=== PATIENT | male | born 1950 | race Caucasian/White ===

== ENCOUNTER 2019-09-18 13:05 | Observation (INO) ==
[2019-09-18 13:43] LABS: Basophils % 0.4 %; Eosinophils # 0.1 K/mcL (0.0-0.6); Eosinophils % 1.1 %; Hemoglobin 14.8 g/dL (12.9-16.9); Immature Granulocytes % 0.4 % (0-4); Lymphocytes # 2.7 K/mcL (0.6-4.6); Lymphocytes % 31.7 %; Mean Corpuscular HGB Conc 34.4 g/dL (31.6-35.5); Mean Corpuscular Hemoglobin 31.5 pg (28.0-33.3); Mean Corpuscular Volume 91.5 fL (83.0-100.0); Mean Platelet Volume 10.6 fL (9.4-12.4); Monocytes # 0.6 K/mcL (0.0-1.3); Monocytes % 7.1 %; Neutrophils # 5.1 K/mcL (1.6-8.9); Platelet Count 178 K/mcL (140-400); Red Cell Distribution Width 13.6 % (11.5-14.5); Segmented Neutrophils % 59.3 %; White Blood Count 8.5 K/mcL (4.3-11.1)
[2019-09-18 14:05] LABS: Calcium 9.6 mg/dL (8.6-10.3); Potassium 4.6 mEq/L (3.5-5.1)
[2019-09-18 14:12] LABS: Troponin I 0.05 ng/mL (< 0.04)
[2019-09-18] MEDS ORDERED: *HR* Dextrose 50 % in Water (Syg) 50 ML SYRINGE ONE (14:15)
[2019-09-18] MEDS: *HR* Dextrose 50 % in Water (Vial) 50 ML VIAL IVP ONE ×2 (14:16→14:23)
[2019-09-18] MEDS ORDERED: *HR* Dextrose 50 % in Water (Syg) 50 ML SYRINGE IVP ONE (14:30)
[2019-09-18] MEDS ORDERED: Aspirin 81 MG TAB.CHEW PO ONE (14:45)
[2019-09-18] MEDS ORDERED: Heparin 25,000 UNIT/250 ML D5W 25,000 UNIT/250 ML IV.SOLN IVC SCH (15:00)
[2019-09-18] MEDS ORDERED: *HR* Heparin 5,000 UNIT/ML VIAL IVP PRN ×2 (15:00)
[2019-09-18] MEDS ORDERED: *HR* Heparin 5,000 UNIT/ML VIAL IVP ONE (15:00)
[2019-09-18] MEDS ORDERED: Ondansetron ODT 4 MG TAB.RAPDIS SL PRN (16:01)
[2019-09-18] MEDS ORDERED: Ringers Solution, Lactated 1,000 ML IVC ONE (16:04)
[2019-09-18 16:34] LABS: Heparin anti-factor XA UFH < 0.04 IU/mL (0.30-0.70)
[2019-09-18 16:35] LABS: Hematocrit 43.1 % (37.5-50.1); Mean Corpuscular HGB Conc 34.8 g/dL (31.6-35.5); Mean Corpuscular Hemoglobin 31.6 pg (28.0-33.3); Mean Corpuscular Volume 90.9 fL (83.0-100.0); Mean Platelet Volume 10.9 fL (9.4-12.4); Platelet Count 175 K/mcL (140-400); Prothrombin Time 11.3 Seconds (9.4-12.1); Red Blood Count 4.74 M/mcL (4.19-5.50); Red Cell Distribution Width 13.4 % (11.5-14.5); White Blood Count 8.5 K/mcL (4.3-11.1)
[2019-09-18] MEDS ORDERED: Famotidine 20 MG TABLET PO PRN (16:58)
[2019-09-18] MEDS ORDERED: Gabapentin 300 MG CAPSULE PO PRN (16:58)
[2019-09-18] MEDS ORDERED: Insulin NPH/REG 70/30 100 UNIT/ML (x5UNIT) SQ SCH ×2 (17:00→17:15)
[2019-09-18] MEDS ORDERED: Dextrose Gel 15 GM/37.5 ML TUBE PO PRN ×2 (17:07)
[2019-09-18] MEDS ORDERED: *HR* Dextrose 50 % in Water (Syg) 50 ML SYRINGE IVP PRN (17:07)
[2019-09-18] MEDS ORDERED: D5% in Water 1,000 ML IVC PRN (17:07)
[2019-09-18] MEDS: CycloSPORINE (SandIMMUNE) 100 MG CAPSULE PO SCH (18:57)
[2019-09-18] MEDS ORDERED: Insulin DETEMIR 100 UNIT/ML X5UNITS SQ SCH ×2 (21:00)
[2019-09-18] MEDS ORDERED: Insulin LISPRO 300 UNITS/3 ML VIAL SQ SCH (21:00)
[2019-09-19 05:20] LABS: Basophils % 0.2 %; Eosinophils # 0.1 K/mcL (0.0-0.6); Eosinophils % 1.6 %; Hematocrit 43.2 % (37.5-50.1); Hemoglobin 14.4 g/dL (12.9-16.9); Immature Granulocytes % 0.4 % (0-4); Lymphocytes # 3.2 K/mcL (0.6-4.6); Lymphocytes % 39.2 %; Mean Corpuscular HGB Conc 33.3 g/dL (31.6-35.5); Mean Corpuscular Hemoglobin 31.6 pg (28.0-33.3); Mean Corpuscular Volume 94.7 fL (83.0-100.0); Mean Platelet Volume 10.7 fL (9.4-12.4); Monocytes # 0.7 K/mcL (0.0-1.3); Monocytes % 8.4 %; Neutrophils # 4.1 K/mcL (1.6-8.9); Platelet Count 141 K/mcL (140-400); Red Blood Count 4.56 M/mcL (4.19-5.50); Red Cell Distribution Width 13.6 % (11.5-14.5); Segmented Neutrophils % 50.2 %; White Blood Count 8.1 K/mcL (4.3-11.1)
[2019-09-19 05:41] LABS: Calcium 8.9 mg/dL (8.6-10.3); Potassium 3.9 mEq/L (3.5-5.1)
[2019-09-19] MEDS ORDERED: Insulin LISPRO 300 UNITS/3 ML VIAL SQ SCH (07:30)
[2019-09-19] MEDS ORDERED: Insulin NPH/REG 70/30 100 UNIT/ML (x5UNIT) SQ SCH ×4 (08:00→17:00)
[2019-09-19] MEDS: Cholecalciferol (D-3) 1,000 UNIT (25MCG) TABLET PO SCH (08:58)
[2019-09-19] MEDS: CycloSPORINE, Mod (Neoral) 25 MG CAPSULE PO SCH (08:58)
[2019-09-19] MEDS: CycloSPORINE (SandIMMUNE) 100 MG CAPSULE PO SCH ×2 (08:59→18:03)
[2019-09-19] MEDS: Metoprolol XL (24 HR) Succ 25 MG TAB.ER.24H PO SCH (08:59)
[2019-09-19] MEDS: predniSONE 5 MG TABLET PO SCH (08:59)
[2019-09-19] MEDS ORDERED: NON-FORMULARY MEDICATION 1 EACH EACH (Omega-3/Dha/Epa/Fish Oil [Fish Oil 1,000 Mg Softgel] PO SCH (09:00)
[2019-09-19] MEDS: Aspirin 81 MG TAB.CHEW PO SCH (09:00)
[2019-09-19] MEDS: Insulin NPH/REG 70/30 100 UNIT/ML (x5UNIT) SQ SCH (11:04)
[2019-09-19] MEDS: *HR* Heparin 5,000 UNIT/ML VIAL SQ SCH (18:03)
[2019-09-20 06:07] LABS: Basophils % 0.4 %; Eosinophils # 0.1 K/mcL (0.0-0.6); Eosinophils % 1.3 %; Hemoglobin 14.9 g/dL (12.9-16.9); Immature Granulocytes % 0.3 % (0-4); Lymphocytes # 2.7 K/mcL (0.6-4.6); Lymphocytes % 38.4 %; Mean Corpuscular HGB Conc 33.9 g/dL (31.6-35.5); Mean Corpuscular Hemoglobin 30.9 pg (28.0-33.3); Mean Corpuscular Volume 91.3 fL (83.0-100.0); Mean Platelet Volume 10.9 fL (9.4-12.4); Monocytes # 0.6 K/mcL (0.0-1.3); Monocytes % 9.2 %; Neutrophils # 3.5 K/mcL (1.6-8.9); Platelet Count 157 K/mcL (140-400); Red Blood Count 4.82 M/mcL (4.19-5.50); Red Cell Distribution Width 13.6 % (11.5-14.5); Segmented Neutrophils % 50.4 %; White Blood Count 6.9 K/mcL (4.3-11.1)
[2019-09-20] MEDS: *HR* Heparin 5,000 UNIT/ML VIAL SQ SCH (06:35)
[2019-09-20 07:07] LABS: Calcium 9.3 mg/dL (8.6-10.3); Potassium 4.2 mEq/L (3.5-5.1)
[2019-09-20] MEDS: Cholecalciferol (D-3) 1,000 UNIT (25MCG) TABLET PO SCH (07:33)
[2019-09-20] MEDS: predniSONE 5 MG TABLET PO SCH (07:33)
[2019-09-20] MEDS: Aspirin 81 MG TAB.CHEW PO SCH (07:33)
[2019-09-20] MEDS: Metoprolol XL (24 HR) Succ 25 MG TAB.ER.24H PO SCH (07:33)
[2019-09-20] MEDS: CycloSPORINE, Mod (Neoral) 25 MG CAPSULE PO SCH (07:33)
[2019-09-20] MEDS: CycloSPORINE (SandIMMUNE) 100 MG CAPSULE PO SCH (07:34)
[2019-09-20] MEDS ORDERED: Insulin NPH/REG 70/30 100 UNIT/ML (x5UNIT) SQ SCH ×3 (08:00→17:15)
[2019-09-20] MEDS ORDERED: CeFAZolin Syr 2,000MG/20 ML 2,000 MG/20 ML SYRINGE IVPB ONE (08:01)
[2019-09-20] MEDS ORDERED: Heparin 1,000 UNITS/500 mL 500 ML ONE ×2 (12:01→12:34)
[2019-09-20] MEDS ORDERED: Lidocaine 1% 20 ML MDV ONE (12:01)
[2019-09-20] MEDS ORDERED: *HR* Vasopressin 20 UNIT/ML VIAL ONE (12:06)
[2019-09-20] MEDS ORDERED: Ondansetron 4 MG/2 ML VIAL IVP PRN ×2 (12:07→15:53)
[2019-09-20] MEDS ORDERED: *HR* HYDROmorphone (PF) 1 MG/ML SYRINGE IVP PRN ×2 (12:07→15:53)
[2019-09-20] MEDS ORDERED: *HR* Labetalol 20 MG/4 ML SYRINGE IVP PRN ×2 (12:07→15:53)
[2019-09-20] MEDS ORDERED: Lidocaine -MPF 2% 2 ML VIAL ONE (12:08)
[2019-09-20] MEDS ORDERED: *HR* Propofol 200 MG/20 ML VIAL IVP ONE (12:08)
[2019-09-20] MEDS ORDERED: *HR* FentaNYL (PF) 100 MCG/2 ML VIAL ONE (12:09)
[2019-09-20] MEDS ORDERED: Dexamethasone 4 MG/ML VIAL ONE (12:09)
[2019-09-20 12:27] LABS: Calcium 9.6 mg/dL (8.6-10.3); Potassium 5.4 mEq/L (3.5-5.1)
[2019-09-20] MEDS: Insulin NPH/REG 70/30 100 UNIT/ML (x5UNIT) SQ SCH (12:31)
[2019-09-20] MEDS ORDERED: Ondansetron 4 MG/2 ML VIAL ONE (12:59)
[2019-09-20] MEDS ORDERED: EPHEDrine 50 MG/ML VIAL ONE (13:23)
[2019-09-20] MEDS ORDERED: Ondansetron ODT 4 MG TAB.RAPDIS SL PRN (15:53)
[2019-09-20] MEDS ORDERED: Naloxone 0.4 MG/ML INJ IVP PRN (15:53)
[2019-09-20] MEDS ORDERED: Dextrose Gel 15 GM/37.5 ML TUBE PO PRN ×2 (15:53)
[2019-09-20] MEDS ORDERED: Famotidine 20 MG TABLET PO PRN (15:53)
[2019-09-20] MEDS ORDERED: *HR* Dextrose 50 % in Water (Syg) 50 ML SYRINGE IVP PRN (15:53)
[2019-09-20] MEDS ORDERED: D5% in Water 1,000 ML IVC PRN (15:53)
[2019-09-20] MEDS ORDERED: Acetaminophen 325 MG TABLET PO PRN (15:53)
[2019-09-20] MEDS ORDERED: Gabapentin 300 MG CAPSULE PO PRN (15:53)
[2019-09-20 17:53] VITALS: BP 155/75
[2019-09-20] MEDS ORDERED: CycloSPORINE (SandIMMUNE) 100 MG CAPSULE PO SCH (18:00)
[2019-09-20] MEDS ORDERED: *HR* Heparin 5,000 UNIT/ML VIAL SQ SCH (18:00)
[2019-09-21] MEDS ORDERED: Insulin NPH/REG 70/30 100 UNIT/ML (x5UNIT) SQ SCH ×2 (08:00→12:00)
[2019-09-21] MEDS ORDERED: CycloSPORINE (SandIMMUNE) 100 MG CAPSULE PO SCH (09:00)
[2019-09-21] MEDS ORDERED: Aspirin 81 MG TAB.CHEW PO SCH (09:00)
[2019-09-21] MEDS ORDERED: CycloSPORINE, Mod (Neoral) 25 MG CAPSULE PO SCH (09:00)
[2019-09-21] MEDS ORDERED: predniSONE 5 MG TABLET PO SCH (09:00)
[2019-09-21] MEDS ORDERED: Metoprolol XL (24 HR) Succ 25 MG TAB.ER.24H PO SCH (09:00)
[2019-09-21] MEDS ORDERED: Cholecalciferol (D-3) 1,000 UNIT (25MCG) TABLET PO SCH (09:00)
== END 2019-09-20 19:05 | disposition home or self-care (01) ==
LOC: EMEROOARM 13:05 → 2ANU 13:05
PROVIDERS: ADMIT Pharmacist; ATTEND Internal Medicine

== ENCOUNTER 2020-07-19 09:33 | Inpatient (IN) ==
[2020-07-19 10:23] LABS: Basophils % 0.1 %; Eosinophils # 0.1 K/mcL (0.0-0.6); Eosinophils % 1.5 %; Hemoglobin 14.5 g/dL (12.9-16.9); Immature Granulocytes % 0.1 % (0-4); Lymphocytes # 1.9 K/mcL (0.6-4.6); Lymphocytes % 25.2 %; Mean Corpuscular Hemoglobin 32.2 pg (28.0-33.3); Mean Corpuscular Volume 97.8 fL (83.0-100.0); Mean Platelet Volume 10.9 fL (9.4-12.4); Monocytes # 0.7 K/mcL (0.0-1.3); Neutrophils # 4.7 K/mcL (1.6-8.9); Platelet Count 181 K/mcL (140-400); Segmented Neutrophils % 64.1 %; White Blood Count 7.3 K/mcL (4.3-11.1)
[2020-07-19 10:29] LABS: Prothrombin Time 11.6 Seconds (9.4-12.1)
[2020-07-19 10:32] LABS: Activated Partial Thrombo Time 27.9 Seconds (26.0-36.0)
[2020-07-19 10:48] LABS: Calcium 9.5 mg/dL (8.6-10.3); Potassium 5.5 mEq/L (3.5-5.1); Troponin I 0.06 ng/mL (< 0.04)
[2020-07-19] MEDS ORDERED: 0.9 % Sodium Chloride 1,000 ML IVC STA (11:02)
[2020-07-19] MEDS ORDERED: Insulin Human Regular 10 UNIT in 0.9 % Sodium Chloride 10 ML IV ONE (11:02)
[2020-07-19] MEDS ORDERED: Calcium Gluconate 1gm/50mL 1 GM/50 ML BAG IVPB ONE ×2 (11:21→12:05)
[2020-07-19] MEDS: Calcium Gluconate 1gm/50mL 1 GM/50 ML BAG IVPB PRN ×2 (11:29→12:14)
[2020-07-19] MEDS ORDERED: *HR* Dextrose 50 % in Water (Vial) 50 ML VIAL IVP PRN (13:09)
[2020-07-19] MEDS ORDERED: Dextrose Gel 15 GM/37.5 ML TUBE PO PRN ×2 (13:09)
[2020-07-19] MEDS ORDERED: D5% in Water 1,000 ML IVC PRN (13:09)
[2020-07-19] MEDS ORDERED: Nitroglycerin 0.4 MG TAB.SUBL SL PRN (13:14)
[2020-07-19] MEDS ORDERED: Naloxone 0.4 MG/ML INJ IVP PRN (13:42)
[2020-07-19] MEDS ORDERED: Isosorbide MONOnitrate (24 HR) 30 MG TAB.ER.24H PO ONE (13:48)
[2020-07-19] MEDS ORDERED: *HR* Heparin 5,000 UNIT/ML VIAL IVP PRN ×2 (13:57)
[2020-07-19] MEDS ORDERED: *HR* Heparin 5,000 UNIT/ML VIAL IVP ONE (13:57)
[2020-07-19] MEDS ORDERED: Aspirin 81 MG TAB.CHEW PO SCH (14:00)
[2020-07-19] MEDS ORDERED: Aspirin 81 MG TAB.CHEW PO ONE (14:14)
[2020-07-19] MEDS: Nitroglycerin 1 INCH/GM PACKET TP SCH (15:00)
[2020-07-19] MEDS: Heparin 25,000UNIT/250ML 1/2NS 25,000 UNIT/250 ML IV.SOLN IVC SCH (15:07)
[2020-07-19 15:15] LABS: Hematocrit 40.4 % (37.5-50.1); Hemoglobin 13.7 g/dL (12.9-16.9); Mean Corpuscular HGB Conc 33.9 g/dL (31.6-35.5); Mean Corpuscular Hemoglobin 32.5 pg (28.0-33.3); Mean Corpuscular Volume 95.7 fL (83.0-100.0); Mean Platelet Volume 10.5 fL (9.4-12.4); Platelet Count 152 K/mcL (140-400); Red Blood Count 4.22 M/mcL (4.19-5.50); White Blood Count 5.9 K/mcL (4.3-11.1)
[2020-07-19 15:21] LABS: Heparin anti-factor XA UFH < 0.04 IU/mL (0.30-0.70)
[2020-07-19 15:22] LABS: Prothrombin Time 12.1 Seconds (9.4-12.1)
[2020-07-19 15:23] LABS: Activated Partial Thrombo Time 26.4 Seconds (26.0-36.0)
[2020-07-19] MEDS: Insulin LISPRO 300 UNITS/3 ML VIAL SUBQ SCH ×2 (16:49→20:44)
[2020-07-19] MEDS ORDERED: Perflutren Lipid Microsphere 1.3 ML in 0.9 % Sodium Chloride 8.7 ML IVP PRN (17:14)
[2020-07-20] MEDS ORDERED: Acetaminophen 325 MG TABLET PO PRN (00:54)
[2020-07-20 05:23] LABS: Hemoglobin 13.9 g/dL (12.9-16.9); Mean Corpuscular HGB Conc 33.1 g/dL (31.6-35.5); Mean Corpuscular Hemoglobin 32.2 pg (28.0-33.3); Mean Corpuscular Volume 97.2 fL (83.0-100.0); Mean Platelet Volume 10.6 fL (9.4-12.4); Platelet Count 159 K/mcL (140-400); Red Blood Count 4.32 M/mcL (4.19-5.50); Red Cell Distribution Width 13.1 % (11.5-14.5); White Blood Count 6.9 K/mcL (4.3-11.1)
[2020-07-20 05:41] LABS: Calcium 9.6 mg/dL (8.6-10.3); Chol/HDL Ratio 4.8 (0-4.9); Magnesium 1.8 mg/dL (1.6-2.6); Phosphorous 4.1 mg/dL (2.7-4.5); Potassium 4.2 mEq/L (3.5-5.1)
[2020-07-20] MEDS ORDERED: Regadenoson 0.4 MG/5 ML SYRINGE IVP ONE (06:08)
[2020-07-20 09:14] LABS: Estimated Average Glucose 171 mg/dl; Hemoglobin A1C 7.6 %
[2020-07-20] MEDS: Insulin LISPRO 300 UNITS/3 ML VIAL SUBQ SCH ×4 (09:31→22:07)
[2020-07-20] MEDS: Aspirin Enteric Coated 81 MG Tablet PO SCH (09:32)
[2020-07-20] MEDS: Nitroglycerin 1 INCH/GM PACKET TP SCH ×2 (09:33→23:07)
[2020-07-20] MEDS: Ascorbic Acid 500 MG TABLET PO SCH (09:36)
[2020-07-20] MEDS: hydrALAZINE 25 MG TABLET PO SCH ×3 (09:36→22:00)
[2020-07-20] MEDS: predniSONE 5 MG TABLET PO SCH (09:37)
[2020-07-20] MEDS: mycophenolate mofetiL 250 MG CAPSULE PO SCH ×2 (11:22→22:00)
[2020-07-20] MEDS: CYCLOSPORINE MODIFIED PO SCH ×2 (11:22→22:59)
[2020-07-20] MEDS: Famotidine 20 MG TABLET PO SCH (17:27)
[2020-07-20] MEDS: Heparin 25,000UNIT/250ML 1/2NS 25,000 UNIT/250 ML IV.SOLN IVC SCH (19:38)
[2020-07-20] MEDS: Insulin DETEMIR 100 UNIT/ML X5UNITS SUBQ SCH (22:10)
[2020-07-21 04:56] LABS: Hematocrit 40.1 % (37.5-50.1); Hemoglobin 13.6 g/dL (12.9-16.9); Mean Corpuscular HGB Conc 33.9 g/dL (31.6-35.5); Mean Corpuscular Hemoglobin 32.4 pg (28.0-33.3); Mean Corpuscular Volume 95.5 fL (83.0-100.0); Mean Platelet Volume 10.6 fL (9.4-12.4); Platelet Count 170 K/mcL (140-400); Red Cell Distribution Width 13.1 % (11.5-14.5)
[2020-07-21 05:13] LABS: Calcium 9.4 mg/dL (8.6-10.3); Magnesium 1.7 mg/dL (1.6-2.6); Potassium 3.8 mEq/L (3.5-5.1)
[2020-07-21] MEDS: predniSONE 5 MG TABLET PO SCH (08:48)
[2020-07-21] MEDS: Ascorbic Acid 500 MG TABLET PO SCH (08:48)
[2020-07-21] MEDS: Aspirin Enteric Coated 81 MG Tablet PO SCH (08:48)
[2020-07-21] MEDS: mycophenolate mofetiL 250 MG CAPSULE PO SCH ×2 (08:49→21:24)
[2020-07-21] MEDS: hydrALAZINE 25 MG TABLET PO SCH ×3 (08:49→21:24)
[2020-07-21] MEDS: Nitroglycerin 1 INCH/GM PACKET TP SCH (08:49)
[2020-07-21] MEDS: Insulin LISPRO 300 UNITS/3 ML VIAL SUBQ SCH ×4 (09:29→21:25)
[2020-07-21] MEDS: CYCLOSPORINE MODIFIED PO SCH ×2 (09:37→21:25)
[2020-07-21] MEDS: carvediloL 6.25 MG TABLET PO SCH (17:46)
[2020-07-21] MEDS: Famotidine 20 MG TABLET PO SCH (17:46)
[2020-07-21] MEDS: Heparin 25,000UNIT/250ML 1/2NS 25,000 UNIT/250 ML IV.SOLN IVC SCH (21:22)
[2020-07-21] MEDS: Insulin DETEMIR 100 UNIT/ML X5UNITS SUBQ SCH (21:27)
[2020-07-22 06:10] LABS: Hematocrit 41.4 % (37.5-50.1); Hemoglobin 13.7 g/dL (12.9-16.9); Mean Corpuscular HGB Conc 33.1 g/dL (31.6-35.5); Mean Corpuscular Hemoglobin 31.6 pg (28.0-33.3); Mean Corpuscular Volume 95.6 fL (83.0-100.0); Mean Platelet Volume 10.6 fL (9.4-12.4); Platelet Count 162 K/mcL (140-400); Red Blood Count 4.33 M/mcL (4.19-5.50); Red Cell Distribution Width 12.9 % (11.5-14.5); White Blood Count 6.2 K/mcL (4.3-11.1)
[2020-07-22 06:29] LABS: Calcium 9.8 mg/dL (8.6-10.3); Potassium 4.2 mEq/L (3.5-5.1)
[2020-07-22] MEDS: carvediloL 6.25 MG TABLET PO SCH ×3 (07:28→15:57)
[2020-07-22] MEDS: predniSONE 5 MG TABLET PO SCH (07:29)
[2020-07-22] MEDS: mycophenolate mofetiL 250 MG CAPSULE PO SCH ×2 (07:29→21:38)
[2020-07-22] MEDS: Nitroglycerin 1 INCH/GM PACKET TP SCH (07:29)
[2020-07-22] MEDS: Ascorbic Acid 500 MG TABLET PO SCH (07:29)
[2020-07-22] MEDS: Aspirin Enteric Coated 81 MG Tablet PO SCH (07:29)
[2020-07-22] MEDS: hydrALAZINE 25 MG TABLET PO SCH ×3 (07:29→21:39)
[2020-07-22] MEDS: Insulin LISPRO 300 UNITS/3 ML VIAL SUBQ SCH ×4 (07:30→21:42)
[2020-07-22] MEDS: CYCLOSPORINE MODIFIED PO SCH ×2 (08:51→21:38)
[2020-07-22] MEDS: Famotidine 20 MG TABLET PO SCH (18:29)
[2020-07-22] MEDS: 0.9 % Sodium Chloride 1,000 ML IVC SCH (21:37)
[2020-07-22] MEDS: *HR* Acetylcysteine 20% 600 MG/3 ML ORAL SYRINGE PO SCH (21:38)
[2020-07-22] MEDS: Insulin DETEMIR 100 UNIT/ML X5UNITS SUBQ SCH (21:39)
[2020-07-23] MEDS: Heparin 25,000UNIT/250ML 1/2NS 25,000 UNIT/250 ML IV.SOLN IVC SCH (00:41)
[2020-07-23 05:17] LABS: Hematocrit 41.8 % (37.5-50.1); Hemoglobin 13.7 g/dL (12.9-16.9); Mean Corpuscular HGB Conc 32.8 g/dL (31.6-35.5); Mean Corpuscular Hemoglobin 31.5 pg (28.0-33.3); Mean Corpuscular Volume 96.1 fL (83.0-100.0); Mean Platelet Volume 10.7 fL (9.4-12.4); Platelet Count 148 K/mcL (140-400); Red Blood Count 4.35 M/mcL (4.19-5.50); Red Cell Distribution Width 12.9 % (11.5-14.5); White Blood Count 5.4 K/mcL (4.3-11.1)
[2020-07-23 05:43] LABS: Calcium 9.5 mg/dL (8.6-10.3); Potassium 4.5 mEq/L (3.5-5.1)
[2020-07-23] MEDS ORDERED: 0.9 % Sodium Chloride 500 ML IVC SCH (08:00)
[2020-07-23] MEDS: predniSONE 5 MG TABLET PO SCH (08:50)
[2020-07-23] MEDS: Ascorbic Acid 500 MG TABLET PO SCH (08:50)
[2020-07-23] MEDS: Nitroglycerin 1 INCH/GM PACKET TP SCH ×2 (08:50→18:25)
[2020-07-23] MEDS: carvediloL 6.25 MG TABLET PO SCH (08:50)
[2020-07-23] MEDS: mycophenolate mofetiL 250 MG CAPSULE PO SCH ×2 (08:50→20:54)
[2020-07-23] MEDS: hydrALAZINE 25 MG TABLET PO SCH ×3 (08:50→20:55)
[2020-07-23] MEDS: Insulin LISPRO 300 UNITS/3 ML VIAL SUBQ SCH ×4 (08:50→20:50)
[2020-07-23] MEDS: Aspirin Enteric Coated 81 MG Tablet PO SCH (08:50)
[2020-07-23] MEDS: CYCLOSPORINE MODIFIED PO SCH ×2 (10:15→20:52)
[2020-07-23] MEDS: *HR* Acetylcysteine 20% 600 MG/3 ML ORAL SYRINGE PO SCH ×2 (10:16→20:53)
[2020-07-23 10:48] LABS: Bilirubin,Urine Negative (Negative); Blood,Urine Negative (Negative); Clarity,Urine Clear (Clear); Color,Urine Light-Yellow (Yellow); Glucose,Urine (UA) 70 mg/dL (Normal); Hyaline Casts,Urine Few per lpf (None Seen); Ketones,Urine Negative (Negative); Leukocyte Esterase,Urine Negative (Negative); Nitrite,Urine Negative (Negative); Protein,Urine Trace mg/dL (Neg-Trace); RBC,Urine 0-3 per hpf (0-3); Specific Gravity,Urine 1.014 (1.010-1.025); Urobilinogen,Urine Normal (Normal); WBC,Urine 0-3 per hpf (0-3)
[2020-07-23] MEDS: 0.9 % Sodium Chloride 1,000 ML IVC SCH (12:58)
[2020-07-23] MEDS: Famotidine 20 MG TABLET PO SCH (18:25)
[2020-07-23] MEDS: Insulin DETEMIR 100 UNIT/ML X5UNITS SUBQ SCH (20:52)
[2020-07-24] MEDS: 0.9 % Sodium Chloride 1,000 ML IVC SCH ×2 (02:51→16:36)
[2020-07-24 04:33] LABS: Hematocrit 41.3 % (37.5-50.1); Hemoglobin 13.9 g/dL (12.9-16.9); Mean Corpuscular HGB Conc 33.7 g/dL (31.6-35.5); Mean Corpuscular Hemoglobin 32.3 pg (28.0-33.3); Mean Platelet Volume 10.6 fL (9.4-12.4); Platelet Count 153 K/mcL (140-400); White Blood Count 5.4 K/mcL (4.3-11.1)
[2020-07-24 04:54] LABS: Calcium 9.5 mg/dL (8.6-10.3); Potassium 4.3 mEq/L (3.5-5.1)
[2020-07-24] MEDS: Heparin 25,000UNIT/250ML 1/2NS 25,000 UNIT/250 ML IV.SOLN IVC SCH (05:44)
[2020-07-24] MEDS: Nitroglycerin 1 INCH/GM PACKET TP SCH (08:03)
[2020-07-24] MEDS: Aspirin Enteric Coated 81 MG Tablet PO SCH (08:04)
[2020-07-24] MEDS: hydrALAZINE 25 MG TABLET PO SCH ×3 (08:04→20:29)
[2020-07-24] MEDS: *HR* Acetylcysteine 20% 600 MG/3 ML ORAL SYRINGE PO SCH ×2 (08:04→20:28)
[2020-07-24] MEDS: Ascorbic Acid 500 MG TABLET PO SCH (08:04)
[2020-07-24] MEDS: predniSONE 5 MG TABLET PO SCH (08:04)
[2020-07-24] MEDS: mycophenolate mofetiL 250 MG CAPSULE PO SCH ×2 (08:04→20:28)
[2020-07-24] MEDS: Insulin LISPRO 300 UNITS/3 ML VIAL SUBQ SCH ×4 (08:05→20:37)
[2020-07-24] MEDS: CYCLOSPORINE MODIFIED PO SCH ×2 (13:20→21:42)
[2020-07-24] MEDS: Isosorbide MONOnitrate (24 HR) 30 MG TAB.ER.24H PO SCH (15:28)
[2020-07-24] MEDS: amLODIPine 5 MG TABLET PO SCH (15:29)
[2020-07-24] MEDS: Famotidine 20 MG TABLET PO SCH (16:36)
[2020-07-24] MEDS: carvediloL 6.25 MG TABLET PO SCH (16:42)
[2020-07-24] MEDS: Insulin DETEMIR 100 UNIT/ML X5UNITS SUBQ SCH (20:38)
[2020-07-25] MEDS: carvediloL 6.25 MG TABLET PO SCH ×3 (03:36→17:29)
[2020-07-25 04:33] LABS: Basophils % 0.3 %; Eosinophils # 0.1 K/mcL (0.0-0.6); Eosinophils % 1.2 %; Hematocrit 39.4 % (37.5-50.1); Hemoglobin 13.1 g/dL (12.9-16.9); Immature Granulocytes % 0.3 % (0-4); Lymphocytes # 2.3 K/mcL (0.6-4.6); Lymphocytes % 39.4 %; Mean Corpuscular HGB Conc 33.2 g/dL (31.6-35.5); Mean Corpuscular Hemoglobin 32.7 pg (28.0-33.3); Mean Corpuscular Volume 98.3 fL (83.0-100.0); Mean Platelet Volume 10.6 fL (9.4-12.4); Monocytes # 0.6 K/mcL (0.0-1.3); Monocytes % 9.8 %; Neutrophils # 2.8 K/mcL (1.6-8.9); Platelet Count 146 K/mcL (140-400); Red Blood Count 4.01 M/mcL (4.19-5.50); White Blood Count 5.8 K/mcL (4.3-11.1)
[2020-07-25 04:48] LABS: Calcium 9.1 mg/dL (8.6-10.3)
[2020-07-25] MEDS: 0.9 % Sodium Chloride 1,000 ML IVC SCH ×2 (05:41→17:28)
[2020-07-25] MEDS: Heparin 25,000UNIT/250ML 1/2NS 25,000 UNIT/250 ML IV.SOLN IVC SCH (06:01)
[2020-07-25] MEDS: Insulin LISPRO 300 UNITS/3 ML VIAL SUBQ SCH ×4 (07:48→20:42)
[2020-07-25] MEDS: Aspirin Enteric Coated 81 MG Tablet PO SCH (08:06)
[2020-07-25] MEDS: hydrALAZINE 25 MG TABLET PO SCH ×3 (08:06→20:40)
[2020-07-25] MEDS: *HR* Acetylcysteine 20% 600 MG/3 ML ORAL SYRINGE PO SCH ×2 (08:06→20:38)
[2020-07-25] MEDS: predniSONE 5 MG TABLET PO SCH (08:06)
[2020-07-25] MEDS: Nitroglycerin 1 INCH/GM PACKET TP SCH (08:07)
[2020-07-25] MEDS: amLODIPine 5 MG TABLET PO SCH (08:07)
[2020-07-25] MEDS: Ascorbic Acid 500 MG TABLET PO SCH (08:07)
[2020-07-25] MEDS: Isosorbide MONOnitrate (24 HR) 30 MG TAB.ER.24H PO SCH (08:07)
[2020-07-25] MEDS: mycophenolate mofetiL 250 MG CAPSULE PO SCH ×2 (08:07→20:39)
[2020-07-25] MEDS: CYCLOSPORINE MODIFIED PO SCH ×2 (08:52→20:39)
[2020-07-25 10:40] LABS: Calcium 9.3 mg/dL (8.6-10.3); Potassium 4.5 mEq/L (3.5-5.1)
[2020-07-25] MEDS ORDERED: Isosorbide MONOnitrate (24 HR) 30 MG TAB.ER.24H PO ONE (13:06)
[2020-07-25] MEDS: Famotidine 20 MG TABLET PO SCH (17:28)
[2020-07-25] MEDS: *HR* Heparin 5,000 UNIT/ML VIAL SQ SCH (17:29)
[2020-07-25] MEDS: Insulin DETEMIR 100 UNIT/ML X5UNITS SUBQ SCH (20:43)
[2020-07-25 20:49] LABS: Calcium 9.1 mg/dL (8.6-10.3)
[2020-07-26] MEDS: *HR* Heparin 5,000 UNIT/ML VIAL SQ SCH ×2 (03:59→16:46)
[2020-07-26] MEDS: 0.9 % Sodium Chloride 1,000 ML IVC SCH ×2 (07:31→22:09)
[2020-07-26] MEDS: Insulin LISPRO 300 UNITS/3 ML VIAL SUBQ SCH ×4 (08:15→20:10)
[2020-07-26] MEDS: Nitroglycerin 1 INCH/GM PACKET TP SCH (08:16)
[2020-07-26] MEDS: Ascorbic Acid 500 MG TABLET PO SCH (08:24)
[2020-07-26] MEDS: mycophenolate mofetiL 250 MG CAPSULE PO SCH ×2 (08:24→20:07)
[2020-07-26] MEDS: Aspirin Enteric Coated 81 MG Tablet PO SCH (08:24)
[2020-07-26] MEDS: hydrALAZINE 25 MG TABLET PO SCH ×3 (08:24→20:07)
[2020-07-26] MEDS: amLODIPine 5 MG TABLET PO SCH (08:24)
[2020-07-26] MEDS: Isosorbide MONOnitrate (24 HR) 60 MG TAB.ER.24H PO SCH (08:24)
[2020-07-26] MEDS: predniSONE 5 MG TABLET PO SCH (08:24)
[2020-07-26] MEDS: carvediloL 6.25 MG TABLET PO SCH ×2 (08:25→16:46)
[2020-07-26] MEDS: *HR* Acetylcysteine 20% 600 MG/3 ML ORAL SYRINGE PO SCH (08:33)
[2020-07-26 09:14] LABS: Calcium 9.1 mg/dL (8.6-10.3); Potassium 4.5 mEq/L (3.5-5.1)
[2020-07-26 09:24] LABS: Basophils % 0.3 %; Eosinophils # 0.1 K/mcL (0.0-0.6); Eosinophils % 1.2 %; Hemoglobin 13.2 g/dL (12.9-16.9); Immature Granulocytes % 0.5 % (0-4); Lymphocytes # 1.9 K/mcL (0.6-4.6); Lymphocytes % 32.4 %; Mean Corpuscular Hemoglobin 32.4 pg (28.0-33.3); Mean Corpuscular Volume 98.3 fL (83.0-100.0); Mean Platelet Volume 10.9 fL (9.4-12.4); Monocytes # 0.5 K/mcL (0.0-1.3); Monocytes % 8.9 %; Neutrophils # 3.4 K/mcL (1.6-8.9); Platelet Count 144 K/mcL (140-400); Red Blood Count 4.07 M/mcL (4.19-5.50); Red Cell Distribution Width 13.1 % (11.5-14.5); Segmented Neutrophils % 56.7 %
[2020-07-26] MEDS ORDERED: *HR* Heparin 10,000 UNIT/10 ML VIAL ONE (09:34)
[2020-07-26] MEDS ORDERED: Heparin 1,000 UNITS/500 mL 500 ML ONE (09:34)
[2020-07-26] MEDS ORDERED: 0.9 % Sodium Chloride 2,000 ML ONE (09:34)
[2020-07-26] MEDS ORDERED: ISOVUE-370 200 ML INFUS..BTL ONE (09:35)
[2020-07-26] MEDS ORDERED: Nitroglycerin 1,000 MCG/10 ML VIAL IV ONE (09:35)
[2020-07-26] MEDS ORDERED: *HR* FentaNYL (PF) 100 MCG/2 ML VIAL ONE (10:00)
[2020-07-26] MEDS ORDERED: *HR* Midazolam HCl 2 MG/2 ML VIAL ONE (10:00)
[2020-07-26] MEDS ORDERED: amLODIPine 5 MG TABLET PO ONE (10:45)
[2020-07-26] MEDS: CYCLOSPORINE MODIFIED PO SCH ×2 (11:28→20:07)
[2020-07-26] MEDS ORDERED: Famotidine 20 MG TABLET PO SCH (21:00)
[2020-07-26] MEDS: Insulin DETEMIR 100 UNIT/ML X5UNITS SUBQ SCH (22:09)
[2020-07-27 02:40] LABS: Basophils % 0.2 %; Eosinophils # 0.1 K/mcL (0.0-0.6); Eosinophils % 1.4 %; Hematocrit 38.6 % (37.5-50.1); Hemoglobin 12.5 g/dL (12.9-16.9); Immature Granulocytes % 0.4 % (0-4); Immature Platelets 4.6 % (1.1-6.1); Lymphocytes # 1.7 K/mcL (0.6-4.6); Lymphocytes % 31.5 %; Mean Corpuscular HGB Conc 32.4 g/dL (31.6-35.5); Mean Corpuscular Hemoglobin 31.6 pg (28.0-33.3); Mean Corpuscular Volume 97.7 fL (83.0-100.0); Mean Platelet Volume 11.3 fL (9.4-12.4); Monocytes # 0.5 K/mcL (0.0-1.3); Monocytes % 9.6 %; Neutrophils # 3.1 K/mcL (1.6-8.9); Platelet Count 128 K/mcL (140-400); Red Blood Count 3.95 M/mcL (4.19-5.50); Red Cell Distribution Width 12.9 % (11.5-14.5); Segmented Neutrophils % 56.9 %; White Blood Count 5.5 K/mcL (4.3-11.1)
[2020-07-27 03:00] LABS: Calcium 9.3 mg/dL (8.6-10.3); Potassium 4.4 mEq/L (3.5-5.1)
[2020-07-27] MEDS: *HR* Heparin 5,000 UNIT/ML VIAL SQ SCH (06:05)
[2020-07-27 07:30] VITALS: BP 169/73
[2020-07-27] MEDS: hydrALAZINE 25 MG TABLET PO SCH (07:59)
[2020-07-27] MEDS: mycophenolate mofetiL 250 MG CAPSULE PO SCH (07:59)
[2020-07-27] MEDS: Ascorbic Acid 500 MG TABLET PO SCH (07:59)
[2020-07-27] MEDS: carvediloL 6.25 MG TABLET PO SCH (07:59)
[2020-07-27] MEDS: Aspirin Enteric Coated 81 MG Tablet PO SCH (08:00)
[2020-07-27] MEDS: Insulin LISPRO 300 UNITS/3 ML VIAL SUBQ SCH (08:00)
[2020-07-27] MEDS: predniSONE 5 MG TABLET PO SCH (08:04)
[2020-07-27] MEDS: Isosorbide MONOnitrate (24 HR) 60 MG TAB.ER.24H PO SCH (08:08)
[2020-07-27] MEDS: Nitroglycerin 1 INCH/GM PACKET TP SCH (08:09)
[2020-07-27] MEDS ORDERED: amLODIPine 5 MG TABLET PO SCH (09:00)
== END 2020-07-27 11:22 | disposition home or self-care (01) | DRG 281 ==
LOC: EMEROOARM 09:33 → 3BNU 09:33 → SUATTDRO 12:33 → 3BNU 13:30
PROVIDERS: ADMIT Student in an Organized Health Care Education/Training Program; ATTEND Internal Medicine

== ENCOUNTER 2022-03-12 12:26 | Observation (INO) ==
[2022-03-12] MEDS ORDERED: Iopamidol - 370 500 ML MLS IVP ONE (13:51)
[2022-03-12 13:57] LABS: Basophils % 0.3 %; Eosinophils # 0.1 K/mcL (0.0-0.6); Eosinophils % 0.6 %; Hematocrit 44.3 % (37.5-50.1); Hemoglobin 15.1 g/dL (12.9-16.9); Immature Granulocytes % 0.3 % (0-4); Lymphocytes # 1.5 K/mcL (0.6-4.6); Lymphocytes % 14.2 %; Mean Corpuscular HGB Conc 34.1 g/dL (31.6-35.5); Mean Corpuscular Hemoglobin 32.5 pg (28.0-33.3); Mean Corpuscular Volume 95.5 fL (83.0-100.0); Monocytes # 0.6 K/mcL (0.0-1.3); Platelet Count 160 K/mcL (140-400); Red Blood Count 4.64 M/mcL (4.19-5.50); Red Cell Distribution Width 13.3 % (11.5-14.5); Segmented Neutrophils % 78.6 %; White Blood Count 10.2 K/mcL (4.3-11.1)
[2022-03-12] MEDS ORDERED: *HR* FentaNYL (PF) 100 MCG/2 ML VIAL IVP STA (13:57)
[2022-03-12] MEDS ORDERED: Ondansetron 4 MG/2 ML VIAL IVP ONE (13:58)
[2022-03-12 14:19] LABS: Potassium 5.4 mEq/L (3.5-5.1)
[2022-03-12] MEDS ORDERED: 0.9 % Sodium Chloride 1,000 ML IVC ONE (14:32)
[2022-03-12 15:10] LABS: Adenovirus Not Detected (Not Detect); Bordetella Pertussis Not Detected (Not Detect); Chlamydophila pneumoniae Not Detected (Not Detect); Coronavirus 229E Not Detected (Not Detect); Coronavirus HKU1 Not Detected (Not Detect); Coronavirus NL63 Not Detected (Not Detect); Coronavirus OC43 Not Detected (Not Detect); Human Metapneumovirus Not Detected (Not Detect); Human Rhinovirus/Enterovirus Not Detected (Not Detect); Influenza A Subtype 2009 H1 Not Detected (Not Detect); Influenza B Not Detected (Not Detect); Mycoplasma pneumoniae Not Detected (Not Detect); Parainfluenza Virus 1 Not Detected (Not Detect); Parainfluenza Virus 2 Not Detected (Not Detect); Parainfluenza Virus 3 Not Detected (Not Detect); Parainfluenza Virus 4 Not Detected (Not Detect); Respiratory Syncytial Virus Not Detected (Not Detect); SARS-CoV-2 Not Detected (Not Detect)
[2022-03-12 18:51] LABS: Bilirubin,Urine Negative (Negative); Blood,Urine Negative (Negative); Clarity,Urine Clear (Clear); Color,Urine Yellow (Yellow); Glucose,Urine (UA) >=1000 mg/dL (Normal); Hyaline Casts,Urine Moderate per lpf (None Seen); Ketones,Urine Trace mg/dL (Negative); Leukocyte Esterase,Urine Negative (Negative); Mucus,Urine Few per lpf (None-Few); Nitrite,Urine Negative (Negative); Protein,Urine 50 mg/dL (Neg-Trace); RBC,Urine 0-3 per hpf (0-3); Specific Gravity,Urine 1.018 (1.010-1.025); Urobilinogen,Urine Normal (Normal); WBC,Urine 0-3 per hpf (0-3)
[2022-03-12] MEDS ORDERED: Melatonin 3 MG TABLET PO PRN (19:37)
[2022-03-12] MEDS ORDERED: Ondansetron ODT 4 MG TAB.RAPDIS SL PRN (19:37)
[2022-03-12] MEDS ORDERED: Acetaminophen 325 MG TABLET PO PRN (19:37)
[2022-03-12] MEDS ORDERED: Naloxone 0.4 MG/ML INJ IVP PRN (19:37)
[2022-03-12] MEDS ORDERED: Gabapentin 300 MG CAPSULE PO PRN (19:41)
[2022-03-12] MEDS ORDERED: Dextrose Gel 15 GM/37.5 ML TUBE PO PRN ×4 (19:48→19:52)
[2022-03-12] MEDS ORDERED: *HR* Dextrose 50 % in Water (Syg) 50 ML SYRINGE IVP PRN ×2 (19:48→19:52)
[2022-03-12] MEDS ORDERED: D5% in Water 1,000 ML IVC PRN ×2 (19:48→19:52)
[2022-03-12] MEDS ORDERED: Insulin LISPRO 300 UNITS/3 ML VIAL SUBQ SCH (21:00)
[2022-03-12] MEDS: hydrALAZINE 25 MG TABLET PO SCH (23:08)
[2022-03-12] MEDS: mycophenolate mofetiL 250 MG CAPSULE PO SCH (23:09)
[2022-03-12] MEDS: carvediloL 6.25 MG TABLET PO SCH (23:09)
[2022-03-12] MEDS: Insulin DETEMIR 100 UNIT/ML X5UNITS SUBQ SCH (23:09)
[2022-03-12] MEDS: Ciprofloxacin HCL Soln 5 ML BOTTLE BOTH EYES SCH (23:10)
[2022-03-12] MEDS: Lacri-Lube 3.5 GM TUBE BOTH EYES SCH (23:10)
[2022-03-13] MEDS: Ciprofloxacin HCL Soln 5 ML BOTTLE BOTH EYES SCH ×4 (00:02→13:00)
[2022-03-13] MEDS: *HR* Heparin 5,000 UNIT/ML VIAL SQ SCH ×2 (05:30→14:00)
[2022-03-13 05:36] LABS: Basophils % 0.2 %; Eosinophils % 1.4 %; Mean Corpuscular Hemoglobin 32.2 pg (28.0-33.3); Red Cell Distribution Width 13.2 % (11.5-14.5)
[2022-03-13 05:38] LABS: Eosinophils # 0.1 K/mcL (0.0-0.6); Hematocrit 43.3 % (37.5-50.1); Hemoglobin 14.5 g/dL (12.9-16.9); Immature Granulocytes % 0.2 % (0-4); Immature Platelets 5.5 % (1.1-6.1); Lymphocytes % 32.2 %; Mean Corpuscular HGB Conc 33.5 g/dL (31.6-35.5); Monocytes # 0.7 K/mcL (0.0-1.3); Monocytes % 10.3 %; Neutrophils # 3.5 K/mcL (1.6-8.9); Platelet Count 126 K/mcL (140-400); Red Blood Count 4.51 M/mcL (4.19-5.50); Segmented Neutrophils % 55.7 %; White Blood Count 6.3 K/mcL (4.3-11.1)
[2022-03-13 05:55] LABS: Calcium 8.8 mg/dL (8.6-10.3); Magnesium 1.9 mg/dL (1.6-2.6); Phosphorous 3.2 mg/dL (2.7-4.5); Potassium 4.1 mEq/L (3.5-5.1)
[2022-03-13 07:05] VITALS: BP 162/73; PULSE 56; TEMP 98; O2SAT 96
[2022-03-13] MEDS: Insulin LISPRO 300 UNITS/3 ML VIAL SUBQ SCH ×2 (07:54→13:57)
[2022-03-13] MEDS: carvediloL 6.25 MG TABLET PO SCH (08:27)
[2022-03-13] MEDS: Lacri-Lube 3.5 GM TUBE BOTH EYES SCH (08:27)
[2022-03-13] MEDS: hydrALAZINE 25 MG TABLET PO SCH (08:27)
[2022-03-13] MEDS: Insulin DETEMIR 100 UNIT/ML X5UNITS SUBQ SCH (08:30)
[2022-03-13] MEDS: mycophenolate mofetiL 250 MG CAPSULE PO SCH (08:53)
[2022-03-13] MEDS ORDERED: amLODIPine 5 MG TABLET PO SCH (09:00)
[2022-03-13] MEDS ORDERED: Aspirin Enteric Coated 81 MG Tablet PO SCH (09:00)
[2022-03-13] MEDS ORDERED: CycloSPORINE, Mod (Neoral) 25 MG CAPSULE PO SCH ×3 (09:00→18:00)
[2022-03-13] MEDS ORDERED: predniSONE 5 MG TABLET PO SCH (09:00)
[2022-03-13 09:47] LABS: Protein/Creatinine Ratio,Urine 1.13 mg/mg (0.00-0.20); Sodium, Urine 157.4 mEq/L
[2022-03-13] MEDS ORDERED: Famotidine 20 MG TABLET PO SCH (18:00)
== END 2022-03-13 15:08 | disposition home or self-care (01) ==
LOC: 3BNU 12:26 → EMEROOARM 12:26 → SUATTDRO 20:15 → 3BNU 22:30
PROVIDERS: ADMIT Internal Medicine; ATTEND Student in an Organized Health Care Education/Training Program